=== PATIENT | female | born 1995 | race African-American/Black ===

== ENCOUNTER 2017-11-07 22:37 | Emergency (ER) | payer SELFPAY ==
[~2017-11-07] VITALS: Ht 170.2 cm; Wt 72.0 kg
[2017-11-07 22:56] VITALS: BP 124/88
== END 2017-11-08 00:36 | disposition left against medical advice (07) ==
LOC: ER 23:41
DX: R07.89 Other chest pain (principal); J45.909 Unspecified asthma, uncomplicated; I49.1 Atrial premature depolarization
CPT/HCPCS: 93005; 99283